=== PATIENT | male | born 1990 | race African-American/Black ===

== ENCOUNTER 2018-05-11 16:53 | Emergency (ER) | payer OTHER ==
[~2018-05-11] VITALS: Ht 177.8 cm; Wt 86.2 kg
--- NOTE | 2018-05-11 17:08 | NUR ---
ED Nurse Note: patient walked into ED for STD check up. notified by partners that they are positive for STD, he had unprotected sexual activity a week a go. patient reports no symptoms at this time. .
[2018-05-11] MEDS ORDERED: Azithromycin 250mg tab ORAL ONE (17:15)
[2018-05-11] MEDS ORDERED: Lidocaine 1% MPF 10mg/ml 5ml INJ ONE (17:15)
--- NOTE | 2018-05-11 17:20 | Emergency Room Report ---
History of Present Illness General Chief Complaint: Male Urogenital Problems Source: Patient Present Illness HPI 27-year-old male patient presents the ER requesting screening for possible sexually transmitted disease. Patient reports that he was informed by recent sexual partner from the past 2 weeks and previous sexual partner from 2 months ago that they both tested positive for chlamydia. Reports he had unprotected sex with both. Denies fever, chest pain, shortness of breath, abdominal pain. Denies testicular pain or swelling. Denies penile discharge. Denies penile pain. Denies pelvic rash or lesions. Denies dysuria, hematuria. Denies other aggravating or relieving factors. Denies flank pain. Allergies: Coded Allergies: No Known Allergies (Unverified , 05/11/18) Patient History Past Medical History: see triage record Reviewed Nursing Documentation: PMH: Agreed; PSxH: Agreed Nursing Documentation-PMH Past Medical History: No Stated History Review of Systems All Other Systems: negative except mentioned in HPI Physical Exam Vital Signs Date Time Temp Pulse Resp B/P (MAP) Pulse Ox O2 Delivery O2 Flow Rate FiO2 05/11/18 16:58 98.4 81 16 132/78 97 Room Air Sp02 EP Interpretation: reviewed, normal General Appearance: well appearing, no apparent distress, alert, GCS 15, non- toxic Head: normocephalic, atraumatic Eyes: bilateral eye normal inspection, bilateral eye PERRL ENT: hearing grossly normal, normal pharynx, no angioedema, normal voice, uvula midline, moist mucus membranes Neck: full range of motion Respiratory: lungs clear, normal breath sounds, no rhonchi, no respiratory distress, no accessory muscle use, no wheezing, speaking full sentences Cardiovascular #1: regular rate, rhythm, no edema Gastrointestinal: non tender, soft, no mass, non-distended, no guarding, no rebound Genitourinary: no CVA tenderness, deferred Musculoskeletal: back normal, digits/nails normal, gait/station normal, normal range of motion, non-tender Neurologic: alert, oriented x3, responsive, motor strength/tone normal, sensory intact Psychiatric: mood/affect normal Skin: no rash Medical Decision Making PA Attestation Dr. Anthony is my supervising Physician whom patient management has been discussed with. Diagnostic Impression: Primary Impression: Encounter for screening examination for sexually transmitted disease ER Course Pt. presents to the ED c/o possible STI and requesting treatment. Ddx considered but are not limited to gonorrhea, chalmydia, cystitis, pyelonephritis. Vital signs: are WNL, pt. is afebrile ER COURSE: PE benign, declined genital exam. Provided patient with Rocephin and Azithromycin in the ER. Informed patient medications will cover for gonorrhea and chlamydia, needs further follow-up evaluation and possible treatment of other sexual transmitted infections. Patient denies dysuria, hematuria, does not require UA at this time. Low suspicion for UTI. Advised to use safe sex practices including but not limited to use of condoms. Avoid sexual activity for the next 2 weeks. Instructed patient to follow up with STI clinic and/or PCP for STI evaluation and further treatment as necessary. Instructed patient to inform partners of needs for evaluation and treatment of possible infections. ER precautions given. DISCHARGE: Patient is resting comfortably, in no acute distress, nontoxic appearing, talking without difficulty. Patient to take medications as instructed Will provide with patient care instructions and any necessary prescriptions. Care plan and follow-up instructions provided. Patient instructed to follow-up with primary care provider in 3 - 5 days. Patient questions asked and answered. Patient reports understanding and agreement to treatment plan. ER precautions given. Patient instructed to return to ER immediately for any new or worsening of symptoms including but not limited to increasing SOB, persistent fever. - Please note that this Emergency Department Report was dictated using [employer] trader technology software, occasionally this can lead to erroneous entry secondary to interpretation by the dictation equipment. Last Vital Signs Date Time Temp Pulse Resp B/P (MAP) Pulse Ox O2 Delivery O2 Flow Rate FiO2 05/11/18 16:58 98.4 81 16 132/78 97 Room Air Disposition: HOME, SELF-CARE Condition: Stable Scripts No Active Prescriptions or Reported Meds Patient Instructions: Sexually Transmitted Disease, [id number] Additional Instructions: Followup with primary care provider and followup with STI clinic for further evaluation and treatment. Alert sexual partners for need for evaluation and treatment. Wear condoms during sex. Avoid sexual activity for 2 weeks. Drink plenty of fluids. Patient questions asked and answered. ER precautions given, patient instructed to return to ER immediately for any new or worsening of symptoms. Merritt De La Fuente May 11, 2018 17:20
[2018-05-11 17:30] VITALS: BP 132/78
--- NOTE | 2018-05-11 17:33 | NUR ---
ED Nurse Note: Patient is being discharged cleared by ER PA. discharge paper/instruction given to the patient, patient verbalized understanding. patient a/o x4, ambulated out of Ed with steady gait, with all belongings. ID band removed. List of clinics to follow was given.
== END 2018-05-11 17:30 | disposition home or self-care (01) ==
LOC: EMR 17:30
DX: Z20.2 Contact with and (suspected) exposure to infections with a predominantly sexual mode of transmission (principal)
CPT/HCPCS: 96372; 96374; 99284; J0696